=== PATIENT | male | born 1975 | race Two or more races ===

== ENCOUNTER 2024-02-14 07:18 | Emergency (ER) | payer MEDICARE ==
[~2024-02-14] VITALS: Ht 182.9 cm; Wt 100.0 kg
[2024-02-14 08:09] VITALS: TEMP 97.5
--- NOTE | 2024-02-14 09:19 | ED.PDOC ---
Psychiatric HPI Comments A 48 year old male brought in by EMS presents to the ED with a chief complaint of hallucinations onset a few days. Patient states he ran out of his psych medications and has been experiencing auditory, visual hallucinations as well as anxiety, not being able to sleep. He denies suicidal or homicidal ideation, chest pain, shortness of breath, abdominal pain, nausea, vomiting, diarrhea. No other symptoms or modifying factors present at this time. Chief Complaint: Hallucinations Time Seen by MD: 09:11 Reviewed Notes: Medications, Allergies Information Source: Patient Mode of Arrival: EMS Timing: Days Duration: Since onset Prehospital treatment: None Presents with: Anxiety Quality: Hallucinations Associated signs and symptoms: Anxiety, Hallucinations Past Medical History PAST MEDICAL HISTORY: Anxiety Surgical History: Unknown Family History Family History: Unknown Social History Smoker: Non-Smoker Alcohol: Denies ETOH Use Drugs: Denies Drug Use Lives In: Home Constitutional: denies: chills, diaphoresis, fatigue, fever, malaise, sweats, weakness, others EENTM: denies: blurred vision, double vision, ear bleeding, ear discharge, ear drainage, ear pain, ear ringing, eye pain, eye redness, hearing loss, mouth pain, mouth swelling, nasal discharge, nose bleeding, nose congestion, nose pain, photophobia, tearing, throat pain, throat swelling, voice changes, others Respiratory: denies: cough, hemoptysis, orthopnea, SOB at rest, shortness of breath, SOB with excertion, stridor, wheezing, others Cardiovascular: denies: chest pain, dizzy spells, diaphoresis, Dyspnea on exertion, edema, irregular heart beat, left arm pain, lightheadedness, palpitations, PND, syncope, others Gastrointestinal: denies: abdomen distended, abdominal pain, blood streaked bowels, constipated, diarrhea, dysphagia, difficulty swallowing, hematemesis, melena, nausea, poor appetite, poor fluid intake, rectal bleeding, rectal pain, vomiting, others Genitourinary: denies: burning, dysuria, flank pain, frequency, hematuria, incontinence, penile discharge, penile sore, pain, testicle pain, testicle swelling, urgency, others Neurological: denies: dizziness, fainting, headache, left sided numbness, left sided weakness, numbness, paresthesia, pre-existing deficit, right sided numbness, right sided weakness, seizure, speech problems, tingling, tremors, weakness, others Musculoskeletal: denies: back pain, gout, joint pain, joint swelling, muscle pain, muscle stiffness, neck pain, others Integumetry: denies: bruises, change in color, change in hair/nails, dryness, laceration, lesions, lumps, rash, wounds, others Allergic/Immunocompromised: denies: Difficulty Healing, Frequent Infections, Hives, Itching, others Hematologic/Lymphatic: denies: anemia, blood clots, easy bleeding, easy bruising, swollen glands, others Endocrine: denies: excessive hunger, excessive sweating, excessive thirst, excessive urination, flushing, intolerance to cold, intolerance to heat, unexplained weight gain, unexplained weight loss, others Psychiatric: reports: anxiety, sleepless, others (visual and auditory hallucinations); denies: bipolar disorder, depression, hopeless, panic disorder, schizophrenia, suicidal All Other Systems: Reviewed and Negative Physical Exam General Appearance: No Apparent Distress, Normal HEENT: Normal ENT Inspection, Pharynx Normal, TMs Normal Neck: Full Range of Motion, Non-Tender, Normal, Normal Inspection Respiratory: Chest Non-Tender, Lungs Clear, No Accessory Muscle Use, No Respiratory Distress, Normal Breath Sounds Cardiovascular: No Edema, No JVD, No Murmur, No Gallop, Normal Peripheral Pulses, Regular Rate/Rhythm Breast Exam: Deferred Gastrointestinal: No Organomegaly, Non Tender, No Pulsatile Mass, Normal Bowel Sounds, Soft Genitalia: Deferred Pelvic: Deferred Rectal: Deferred Extremities: No calf tenderness, Normal capillary refill, Normal inspection, Normal range of motion, Non-tender, No pedal edema Musculoskeletal : Apperance: Normal Neurologic: Alert, casting machine set up operator II-XII nml as Tested, No Motor Deficits, Normal Affect, Normal Mood, No Sensory Deficits Cerebellar Function: Normal Reflexes: Normal Skin: Dry, Normal Color, Warm Lymphatic: No Adenopathy Was a procedure done? Was a procedure done?: No Psych Differential Dx Psych. Differential Dx: Anxiety, Depression, Sleepless, Suicidal Suicidal Differential Dx: Panic Disorder, Personality Disorder Intoxication Differential Dx: Medical Noncompliance, Personality Disorder X-Ray, Labs, Meds, VS Vital Signs Date Time Temp Pulse Resp B/P (MAP) Pulse Ox O2 Delivery O2 Flow Rate FiO2 02/14/24 10:59 64 13 96 Room Air* 0 21 02/14/24 10:58 64 13 147/97 (114) 96 02/14/24 08:09 97.5 62 14 165/97 (119) 99 97.5 02/14/24 07:49 98.3 84 17 172/108 (129) 100 Lab Test 02/14/24 09:30 02/14/24 09:00 Range/Units White Blood Count 8.4 4.4-10.8 10^3/uL Red Blood Count 5.14 4.5-5.90 10^6/uL Hemoglobin 15.3 13.5-17.5 g/dL Hematocrit 45.3 41.0-53.0 % Mean Corpuscular Volume 88.2 80.0-100.0 fL Mean Corpuscular Hemoglobin 29.7 28.0-32.0 pg Mean Corpuscular Hemoglobin Concent 33.7 32.0-36.0 g/dL Red Cell Distribution Width 14.3 11.8-14.3 % Platelet Count 347 140-450 10^3/uL Mean Platelet Volume 6.6 L 6.9-10.8 fL Neutrophils (%) (Auto) 81.7 H 37.0-80.0 % Lymphocytes (%) (Auto) 11.0 10.0-50.0 % Monocytes (%) (Auto) 6.0 0.0-12.0 % Eosinophils (%) (Auto) 0.8 0.0-7.0 % Basophils (%) (Auto) 0.5 0.0-2.0 % Neutrophils # (Auto) 6.9 1.6-8.6 10 ^3/uL Lymphocytes # (Auto) 0.9 0.4-5.4 10 ^3/uL Monocytes # (Auto) 0.5 0-1.3 10 ^3/uL Eosinophils # (Auto) 0.1 0-0.8 10 ^3/uL Basophils # (Auto) 0 0-0.2 10 ^3/uL Nucleated Red Blood Cells 0.0 % Sodium Level 137 136-145 mmol/L Potassium Level 4.2 3.5-5.1 mmol/L Chloride Level 104 98-107 mmol/L Carbon Dioxide Level 23 20-31 mmol/L Anion Gap 10 5-15 Blood Urea Nitrogen 7 L 9-23 mg/dL Creatinine 1.22 0.700-1.30 mg/dL Glomerular Filtration Rate Calc 72 >90 mL/min BUN/Creatinine Ratio 5.7 L 10.0-20.0 Serum Glucose 124 H 74-106 mg/dL Calcium Level 10.5 H 8.7-10.4 mg/dL Salicylates Level < 3.0 -30 mg/dL Acetaminophen Level < 2.0 L 10.0-20.0 UG/ML Plasma/Serum Blood Alcohol < 3.0 <10 mg/dL Urine Color Light-yellow Yellow Urine Clarity Clear Clear Urine pH 7.0 5.0-9.0 Urine Specific [place] 1.015 1.001-1.035 Urine Protein Negative Negative Urine Ketones 1+ H Negative Urine Blood Negative Negative /uL Urine Nitrite Negative Negative Urine Bilirubin Negative Negative Urine Urobilinogen Normal Negative mg/dL Urine Leukocyte Esterase Negative Negative /uL Urine RBC 2 0 - 3 /hpf Urine WBC <1 0 - 3 /hpf Urine Squamous Epithelial Cells None seen <5 /hpf Urine Bacteria None seen None Seen /hpf Urine Glucose Normal Normal mg/dL Urine Opiates Screen Neg NEGATIVE Urine Fentanyl Screen Neg NEGATIVE Urine Barbiturates Screen Neg NEGATIVE Urine Phencyclidine Screen Neg NEGATIVE Urine Amphetamines Screen Neg NEGATIVE Urine Benzodiazepines Screen Neg NEGATIVE Urine Cocaine Screen Neg NEGATIVE Urine Cannabinoids Screen Neg NEGATIVE Current Medications Medications (Trade) Dose Ordered Sig/Carlton Route Start Time Stop Time Status Last Admin Lorazepam (Ativan Inj) 1 mg ONCE ONCE IV 02/14/24 09:15 02/14/24 09:16 DC 02/14/24 09:53 Time of 1ST Reevaluation: 09:41 Reevaluation 1ST: Unchanged Patient Education/Counseling: Diagnosis, Treatment, Prognosis Family Education/Counseling: No Family Present Additional Information HI DATA VOL/COMPLEXITY:>2 External Notes- Ordered Test- LAB, PHA Reviewed Results: BMP, CBC, Drug Screen, Blood Alcohol, Acetaminophen, Salicylate, UA Independent Hx- no Interpreted Results- N/A Discuss Tx/Results- medical personnel, network consultant, pt Departure 1 Departure Time of Disposition: 14:29 (Patient with altered mental status hearing voices and having intense anxiety. Patient was medically cleared for psychiatry. Patient then eloped.) Impression: Primary Impression: Anxiety reaction Additional Impression: Auditory hallucinations Disposition: 07 LEFT AWOL/ELOPED Condition: Fair Critical Care Note Critical Care Time?: No Stability Stability form required: No I personally scribed for LEIGH BIRMINGHAM MD ([email or web address]) on 02/14/24 at 09:19. Electronically submitted by Dolly Stout ([email or web address]). I personally scribed for LEIGH BIRMINGHAM MD ([email or web address]) on 02/14/24 at 10:48. Electronically submitted by Dolly Stout [email or web address]). LEIGH BIRMINGHAM MD Feb 14, 2024 09:19
[2024-02-14 09:41] LABS: Basophils # (auto) 0 10 ^3/uL (0-0.2); Basophils % (auto) 0.5 % (0.0-2.0); Eosinophils # (auto) 0.1 10 ^3/uL (0-0.8); Eosinophils % (auto) 0.8 % (0.0-7.0); Hematocrit 45.3 % (41.0-53.0); Hemoglobin 15.3 g/dL (13.5-17.5); Lymphocytes # (auto) 0.9 10 ^3/uL (0.4-5.4); Mean Corpuscular Hemoglobin 29.7 pg (28.0-32.0); Mean Corpuscular Hgb Conc. 33.7 g/dL (32.0-36.0); Mean Corpuscular Volume 88.2 fL (80.0-100.0); Monocytes # (auto) 0.5 10 ^3/uL (0-1.3); Neutrophils # (auto) 6.9 10 ^3/uL (1.6-8.6); Neutrophils % (auto) 81.7 % (37.0-80.0); Platelet Count (auto) 347 10^3/uL (140-450); Red Blood Cells 5.14 10^6/uL (4.5-5.90); Red Cell Distribution Width 14.3 % (11.8-14.3); White Blood Cell 8.4 10^3/uL (4.4-10.8)
[2024-02-14 09:48] LABS: Chloride 104 mmol/L (98-107); Potassium 4.2 mmol/L (3.5-5.1); Sodium 137 mmol/L (136-145)
[2024-02-14 09:49] LABS: Anion Gap 10 (5-15); Carbon Dioxide 23 mmol/L (20-31)
[2024-02-14 09:50] LABS: Urine Bacteria None Seen /hpf (None Seen)
[2024-02-14 09:51] LABS: Calcium 10.5 mg/dL (8.7-10.4)
[2024-02-14] MEDS: LORazepam 2MG/ML-1ML VIAL IV ONE (09:53)
[2024-02-14 09:54] LABS: BUN/Creatinine Ratio 5.7 (10.0-20.0)
[2024-02-14 09:58] LABS: Urine Blood Negative /uL (Negative); Urine Clarity Clear (Clear); Urine Color Light-Yellow (Yellow); Urine Protein, UAD Negative (Negative); Urine Specific Gravity 1.015 (1.001-1.035); Urine Urobilinogen Normal (Negative); Urine WBC <1 /hpf (0 - 3)
[2024-02-14 10:02] LABS: Acetaminophen < 2.0 UG/ML (10.0-20.0); Blood Alcohol < 3.0 mg/dL (<10); Blood Urea Nitrogen 7 mg/dL (9-23); Glucose 124 mg/dL (74-106)
[2024-02-14 10:03] LABS: Salicylate < 3.0 mg/dL (-30)
[2024-02-14 10:09] LABS: Benzodiazephine Screen, Urine Neg (NEGATIVE)
[2024-02-14 10:12] LABS: Amphetamine Screen, Urine Neg (NEGATIVE); Barbiturate Scree,Urine Neg (NEGATIVE); Cannabinoid Screen, Urine Neg (NEGATIVE); Cocaine Screen, Urine Neg (NEGATIVE); Opiate Scree,Urine Neg (NEGATIVE); Phencyclidine Screen, Urine Neg (NEGATIVE)
[2024-02-14 10:58] VITALS: BP 147/97
[2024-02-14 10:59] VITALS: PULSE 64; RESP 13; O2SAT 96
== END 2024-02-14 14:30 | disposition left against medical advice (07) ==
LOC: EDBD 07:18 → ER 07:18
DX: F41.1 Generalized anxiety disorder (principal); R44.0 Auditory hallucinations; R44.1 Visual hallucinations; R41.82 Altered mental status, unspecified
CPT/HCPCS: 36415; 80048; 80307; 80320; 80329; 81001; 85025; 96374; 99283; J2060

== ENCOUNTER 2024-02-15 16:33 | Emergency (ER) | payer MEDICARE ==
[~2024-02-15] VITALS: Ht 182.9 cm; Wt 99.9 kg
[2024-02-15 17:00] VITALS: PULSE 62; RESP 16; O2SAT 98
[2024-02-15] MEDS: MULTIPLE VITAMIN TAB PO ONE (17:28)
[2024-02-15] MEDS: THIAMINE HCL 100 MG TAB PO ONE (17:28)
[2024-02-15 17:30] LABS: Basophils # (auto) 0.1 10 ^3/uL (0-0.2); Basophils % (auto) 0.6 % (0.0-2.0); Eosinophils # (auto) 0.1 10 ^3/uL (0-0.8); Eosinophils % (auto) 0.6 % (0.0-7.0); Hematocrit 42.3 % (41.0-53.0); Hemoglobin 14.8 g/dL (13.5-17.5); Lymphocytes # (auto) 1.8 10 ^3/uL (0.4-5.4); Lymphocytes % (auto) 18.8 % (10.0-50.0); Mean Corpuscular Hemoglobin 30.1 pg (28.0-32.0); Mean Corpuscular Hgb Conc. 34.9 g/dL (32.0-36.0); Mean Corpuscular Volume 86.2 fL (80.0-100.0); Monocytes # (auto) 0.7 10 ^3/uL (0-1.3); Monocytes % (auto) 7.8 % (0.0-12.0); Neutrophils # (auto) 6.8 10 ^3/uL (1.6-8.6); Neutrophils % (auto) 72.2 % (37.0-80.0); Platelet Count (auto) 344 10^3/uL (140-450); Red Cell Distribution Width 13.7 % (11.8-14.3); White Blood Cell 9.5 10^3/uL (4.4-10.8)
[2024-02-15] MEDS: LORazepam 2MG/ML-1ML VIAL IM ONE (17:31)
[2024-02-15] MEDS: HALOPERIDOL LACTATE 5 MG/ML INJ VIAL IM ONE (17:40)
[2024-02-15] MEDS: diphenhdrAMINE HCL 50 MG/1 ML VL IV ONE (17:40)
[2024-02-15 17:54] LABS: Alanine Aminotransferase 24 U/L (7-40); Albumin 4.7 g/dL (3.2-4.8); Alkaline Phosphatase 53 U/L (46-116); Anion Gap 11 (5-15); Aspartate Aminotransferase 21 U/L (13-40); BUN/Creatinine Ratio 7.4 (10.0-20.0); Blood Urea Nitrogen 9 mg/dL (9-23); Calcium 10.4 mg/dL (8.7-10.4); Carbon Dioxide 21 mmol/L (20-31); Chloride 100 mmol/L (98-107); Potassium 3.9 mmol/L (3.5-5.1); Total Protein 7.2 g/dL (5.7-8.2)
[2024-02-15 17:56] LABS: Acetaminophen < 2.0 UG/ML (10.0-20.0)
[2024-02-15 17:57] LABS: Bilirubin, Total 1.2 mg/dL (0.2-1.0); Glucose 113 mg/dL (74-106); Sodium 132 mmol/L (136-145)
--- NOTE | 2024-02-15 18:00 | ED.PDOC ---
Psychiatric HPI Comments 48-year-old male alcoholic who is on naltrexone and Ativan with history of anxiety, presented yesterday with an anxiety episode treated with 1 round of Ativan 1 mg and allegedly he went home with a normal mental status, he represents with his sister and his father who indicate that he has been altered since this morning, they also endorse that they know that he has been a heavy drinker in the past but do not think that he has drank in the last 7 months, as far as there were no other recreational drugs, he has a psychiatric history otherwise unspecified they are not sure about diagnoses, as far as they are aware no history of SI, HI, AH, VH. They do know that he has been complaining of insomnia and has been taking melatonin with little relief for his insomnia. Patient is very much compromised mentally and not able to provided legitimate history he can identify his parents and his sister, he can not tell me the year, he can not tell me any of his past surgeries, he can not tell me that he used to drink and has not drank in 7 months. Otherwise the history that is able to be obtained from him isn't noncontributory. Family is unsure of medications but they will acquire them from another family member at the house. Chief Complaint: Anxiety Time Seen by MD: 16:38 Primary Care Provider: EFRAIN Mode of Arrival: Ambulatory Past Medical History PAST MEDICAL HISTORY: Anxiety Surgical History: Unknown Family History Family History: Unknown Social History Smoker: Non-Smoker Alcohol: Denies ETOH Use Drugs: Denies Drug Use Lives In: Home Constitutional: denies: chills, diaphoresis, fatigue, fever, malaise, weakness, others EENTM: denies: nose congestion, photophobia, voice changes Respiratory: denies: cough Cardiovascular: denies: chest pain Gastrointestinal: denies: abdominal pain Genitourinary: denies: burning, dysuria, pain Neurological: denies: dizziness, fainting, headache, numbness, paresthesia, seizure, speech problems, tremors Unable to Obtain due to: Altered Mental Status All Other Systems: Reviewed and Negative Physical Exam Exam Comments Alert, oriented to place, oriented to family members and himself, oriented to year. But is not able to provide information on things that the patient would normally know like what his address is, what kind of surgeries his had etcetera General Appearance: No Apparent Distress, Normal HEENT: Normal ENT Inspection, Pharynx Normal, TMs Normal Neck: Full Range of Motion, Non-Tender, Normal, Normal Inspection Respiratory: Chest Non-Tender, Lungs Clear, No Accessory Muscle Use, No Respiratory Distress, Normal Breath Sounds Cardiovascular: No Edema, No JVD, No Murmur, No Gallop, Normal Peripheral Pulses, Regular Rate/Rhythm Breast Exam: Deferred Gastrointestinal: No Organomegaly, Non Tender, No Pulsatile Mass, Normal Bowel Sounds, Soft Genitalia: Deferred Pelvic: Deferred Rectal: Deferred Extremities: No calf tenderness, Normal capillary refill, Normal inspection, Normal range of motion, Non-tender, No pedal edema Musculoskeletal : Apperance: Normal Neurologic: Alert, art objects repairer II-XII nml as Tested, No Motor Deficits, Normal Affect, Normal Mood, No Sensory Deficits Cerebellar Function: Normal Reflexes: Normal Skin: Dry, Normal Color, Warm Lymphatic: No Adenopathy Was a procedure done? Was a procedure done?: No Psych Differential Dx Other Differentail Dx Acute psychosis, insomnia induced psychosis, medication withdrawal induced altered mental status unlikely based on the meds that he is on but possible, acute psychotic break, Wernicke's encephalopathy are all possibilities X-Ray, Labs, Meds, VS Vital Signs Date Time Temp Pulse Resp B/P (MAP) Pulse Ox O2 Delivery O2 Flow Rate FiO2 02/15/24 20:00 57 02/15/24 18:00 52 16 130/89 (103) 98 02/15/24 17:00 62 16 98 Room Air* 0 21 02/15/24 17:00 98.8 62 18 165/98 (120) 98 98.8 02/15/24 16:52 98.8 71 18 187/159 (168) 100 Lab Test 02/15/24 17:23 Range/Units White Blood Count 9.5 4.4-10.8 10^3/uL Red Blood Count 4.90 4.5-5.90 10^6/uL Hemoglobin 14.8 13.5-17.5 g/dL Hematocrit 42.3 41.0-53.0 % Mean Corpuscular Volume 86.2 80.0-100.0 fL Mean Corpuscular Hemoglobin 30.1 28.0-32.0 pg Mean Corpuscular Hemoglobin Concent 34.9 32.0-36.0 g/dL Red Cell Distribution Width 13.7 11.8-14.3 % Platelet Count 344 140-450 10^3/uL Mean Platelet Volume 6.5 L 6.9-10.8 fL Neutrophils (%) (Auto) 72.2 37.0-80.0 % Lymphocytes (%) (Auto) 18.8 10.0-50.0 % Monocytes (%) (Auto) 7.8 0.0-12.0 % Eosinophils (%) (Auto) 0.6 0.0-7.0 % Basophils (%) (Auto) 0.6 0.0-2.0 % Neutrophils # (Auto) 6.8 1.6-8.6 10 ^3/uL Lymphocytes # (Auto) 1.8 0.4-5.4 10 ^3/uL Monocytes # (Auto) 0.7 0-1.3 10 ^3/uL Eosinophils # (Auto) 0.1 0-0.8 10 ^3/uL Basophils # (Auto) 0.1 0-0.2 10 ^3/uL Nucleated Red Blood Cells 0.0 % Sodium Level 132 #L 136-145 mmol/L Potassium Level 3.9 3.5-5.1 mmol/L Chloride Level 100 98-107 mmol/L Carbon Dioxide Level 21 20-31 mmol/L Anion Gap 11 5-15 Blood Urea Nitrogen 9 9-23 mg/dL Creatinine 1.22 0.700-1.30 mg/dL Glomerular Filtration Rate Calc 72 >90 mL/min BUN/Creatinine Ratio 7.4 L 10.0-20.0 Serum Glucose 113 H 74-106 mg/dL Calcium Level 10.4 8.7-10.4 mg/dL Total Bilirubin 1.2 H 0.2-1.0 mg/dL Aspartate Amino Transferase (AST) 21 13-40 U/L Alanine Aminotransferase (ALT) 24 7-40 U/L Alkaline Phosphatase 53 46-116 U/L Total Protein 7.2 5.7-8.2 g/dL Albumin 4.7 3.2-4.8 g/dL Salicylates Level < 3.0 -30 mg/dL Acetaminophen Level < 2.0 L 10.0-20.0 UG/ML Current Medications Medications (Trade) Dose Ordered Sig/Carlton Route Start Time Stop Time Status Last Admin Thiamine HCl 100 mg ONCE ONCE PO 02/15/24 17:15 02/15/24 17:16 DC 02/15/24 17:28 Multivitamins (Mvi Tab) 1 tab ONCE ONCE PO 02/15/24 17:15 02/15/24 17:16 DC 02/15/24 17:28 Lorazepam (Ativan Inj) 2 mg ONCE ONCE IM 02/15/24 17:15 02/15/24 17:16 DC 02/15/24 17:31 Haloperidol Lactate (Haldol) 5 mg ONCE ONCE IM 02/15/24 17:15 02/15/24 17:16 DC 02/15/24 17:40 Diphenhydramine HCl (Benadryl Injection) 50 mg ONCE ONCE IV 02/15/24 17:15 02/15/24 17:16 DC 02/15/24 17:40 X-Ray, Labs, Meds, VS Comment : 1975 LOC: ER ROOM / BED: / AGE / SEX: 48 / M ADM STATUS: REG ER SERVICE 170 ORDERING PHYSICIAN: HEDY CASTREJON MD PROCEDURE(s): HWOCT - HEAD WITHOUT CONTRAST REASON: [facility] ORDER NUMBER(s): [id number], ACCESSION NUMBER(s): [id number] EXAM: CT HEAD WITHOUT CONTRAST INDICATION: AMS TECHNIQUE: CT of the head without intravenous contrast. Radiation Dose Information: CT Dose: CTDI volume is 57.14 mGy. Dose-length product is 1993.76 mGy*cm The dose indicators for CT are the volume Computed Tomography (CT) Dose Index (CTDIvol) and the Dose Length Product (DLP), and are measured in units of mGy and mGy-cm, respectively. These indicators are not patient dose, but values generated from the CT scanner acquisition factors. The report includes radiation exposure data for exposures received during this examination. COMPARISON: None FINDINGS: There is no evidence of acute intracranial hemorrhage, extra-axial collection, mass effect, midline shift, herniation or hydrocephalus. The ventricles, sulci and cisterns are age appropriate. The haji-white differentiation is intact. Patchy periventricular and subcortical white matter hypoattenuation is nonspecific but may be related to small vessel ischemic disease. The visualized paranasal sinuses and mastoid air cells are clear. The surrounding soft tissues and osseous structures are unremarkable. IMPRESSION: 1. No acute intracranial hemorrhage. 2. No CT findings of territorial ischemia ATED BY: ENMANUEL DONALDSON Jr., DO DICTATED DATE/TIME: 02/15/242022 SIGNED BY: ENMANUEL DONALDSON Jr., SIGNED DATE/TIME: 02/15/242022 Patient's sister Leandra phone number [phone] does not feel comfortable with the patient coming home with his current mental status which is reasonable, requesting psychiatric evaluation. Time of 1ST Reevaluation: 17:57 Reevaluation 1ST: Unchanged (Family has notified us that his medications as far as they are aware is melatonin 3 mg, naltrexone 50 mg, lorazepam 1 mg of which he is out and finasteride 1 mg. Patient's mental status is that of 1 who is gravely disabled.) Time of 2ND Reevaluation: 19:29 (Resting comfortably) Reevaluation 2ND: Unchanged (Resting comfortably) Time of 3RD Reevaluation: 21:16 Reevaluation 3RD: Unchanged (When patient is aroused, able to answer some of the questions he was not able to answer before, immediately falls back asleep.) Patient Education/Counseling: Diagnosis, Treatment Family Education/Counseling: Diagnosis (Spoke with daughter Leandra [phone] who was at bedside who would like the patient to be kept overnight and evaluated for psych. She does not feel comfortable bringing him home to stay with her children in his current state.), Treatment Departure 1 Departure Time of Disposition: 19:29 Impression: Primary Impression: Alcohol abuse Additional Impressions: Anxiety reaction Insomnia Altered mental status Disposition: 30 STILL A PATIENT Admit to: Other Condition: Guarded Critical Care Note Critical Care Time?: Yes (30 min-critical care time only) Critical care comment: Multiple reassessments, discussions with father, discussions with sister, review of previous notes. Stability Stability form required: No HEDY CASTREJON MD Feb 15, 2024 18:00
[2024-02-15 18:15] LABS: Salicylate < 3.0 mg/dL (-30)
[2024-02-15 20:00] VITALS: PULSE 64; RESP 13; O2SAT 94
--- NOTE | 2024-02-15 20:25 | DVH ---
EXAM: CT HEAD WITHOUT CONTRAST INDICATION: AMS TECHNIQUE: CT of the head without intravenous contrast. Radiation Dose Information: CT Dose: CTDI volume is 57.14 mGy. Dose-length product is 1993.76 mGy*cm The dose indicators for CT are the volume Computed Tomography (CT) Dose Index (CTDIvol) and the Dose Length Product (DLP), and are measured in units of mGy and mGy-cm, respectively. These indicators are not patient dose, but values generated from the CT scanner acquisition factors. The report includes radiation exposure data for exposures received during this examination. COMPARISON: None FINDINGS: There is no evidence of acute intracranial hemorrhage, extra-axial collection, mass effect, midline s hift, herniation or hydrocephalus. The ventricles, sulci and cisterns are age appropriate. The haji-white differentiation is intact. Patchy periventricular and subcortical white matter hypoattenuation is nonspecific but may be related to small vessel ischemic disease. The visualized paranasal sinuses and mastoid air cells are clear. The surrounding soft tissues and osseous structures are unremarkable. IMPRESSION: 1. No acute intracranial hemorrhage. 2. No CT findings of territorial ischemia
[2024-02-15] MEDS: LORazepam 2MG/ML-1ML VIAL IV ONE (23:25)
[2024-02-16] MEDS: LORazepam 2MG/ML-1ML VIAL IV ONE (01:50)
--- NOTE | 2024-02-16 04:18 | DVHINCON2 ---
Date of Service if different f: Feb 16, 2024 Time of Service: 03:45 Consult Consult Note PSYCHIATRY ED NEW CONSULT HPI: 48 yo M pt with PPH of ETOH use disorder and anxiety presents to ED BIB family members for safety, psychiatric stabilization and possible med initiation/optimization in setting of anxiety, AMS, and AVH. Psychiatry consulted for safety evaluation and recommendations in context of current presentation Per pt, reports ongoing issues with insomnia and since visiting his family in [place] over last week, c/o worsening lack of sleep resulting in confusion, fatigue, low energy, forgetfulness, PMR, and vague NC/NT AVH. Adds he has run out of his rx'd psychotropics since he is out of state which maybe causing these symptoms. Pt also reports some ongoing stress/strained relationship with family members which may have triggered a panic attack earlier in the day Denies depressed mood, hopelessness, helplessness, isolation, negative thoughts, loss of interest, or anhedonia. Adamantly denies SI/HI. Pt currently does not have psychiatrist/therapist out in community although has sought outpt MH services in past. Currently rx'd Mirtazapine, Melatonin, Lorazepam, Naltrexone but ran out of meds several days ago. Denies self medicating mood symptoms with ETOH, THC or IDU although does have long hx of ETOH dependency, previously in various drug tx programs with multiple relapses. Never , no children, unemployed, lives with sibling/family in [place], came to [place] to visit family for TG, no legal issues, some support system noted (immediate family). Unknown FH. No acute medical issues, hx of seizures/TBI, or recent head injuries, NKDA Does not have hx of suicide attempts, SIB/PSG, or prior psych hospitalizations/5150. Denies history of violence, unprovoked aggression, or assaultive behaviors. Denies recent hx of impulsivity, attention seeking behaviors, anger outbursts, emotional dysregulation, mood reactivity or engaging in risky behaviors. Does not have access to firearms. Currently denies SI/HI. Identifies self/family as PPF. No safety concerns noted during encounter. MSE: General Appearance/Behavior: Alert and partially awake/bit lethargic; appears stated age, well developed, fair grooming and hygiene; calm and cooperative, fair eye contact, no PMA/PMR Speech: coherent, some latency Thought Process: linear, logical, limited/concrete, bit slow Thought Content: Abnormal Thoughts and Perceptions: None Homicidality / Violent Thoughts: None Suicidality: adamantly denies SI Hallucinations: mild NC/NT AVH Delusions: denies paranoia, persecutory, or grandiose delusions Obsessions /compulsions : None Judgment and Insight: marginal to questionable Mood & Affect: "just really tired" with mood-congruent, somewhat constricted/restricted, appropriate Orientation: oriented to person, place, time Attention/Concentration: appears intact Assessment: 48 yo M pt with PPH of ETOH use disorder and anxiety presents to ED BIB family members for safety, psychiatric stabilization and possible med initiation/optimization in setting of anxiety, AMS, and AVH. Currently denies SI/HI but continues to have NC/NT AVH and some confusion possibly 2/2 running out of psychotropics over past week resulting in poor sleep, worsening anxiety and emotional distress Presently, pt does not show any signs of immediate danger to self or others that would warrant a higher level of care. Thus, pt does not meet criteria for 5150 or involuntary inpatient psych admission as is not DTS, DTO or GD although voluntary inpt psychiatric hospitalization was offered but pt respectfully declined. However pt expressed further ED observation/reassessment in AM while requesting one time dose of quetiapine 200 mg po now to help with sleep/AVH. No acute safety concerns noted. Hence Recommend overnight ED observation and psych reassessment in AM to assess for ongoing safety/psychiatric stabilization and to determine if higher level of care (i.e inpt psych hospitalization) or 5150 hold is warranted. Recommend one time dose of quetiapine 200 mg po now per pts request If pt continues to show improved J/I, appears hopeful and future-oriented, participates in safety plan, and continues to deny any SI/HI, can consider discharge back to current residence with MH resources If pt shows no/minimal improvement in symptoms upon reassessment and continues to have impaired I/J and psychosis/AMS, recommend inpt psych admission for higher level of care Primary Diagnosis: Anxiety disorder unspecified. R/o Psychotic disorder unspecified. ETOH use disorder, IN DOCKING PILOT Pt verbalized understanding and is receptive to above tx plan This case was discussed with ED nurse/provider and all parties in agreement with above tx plan Brendan Grayson MD Plan discussed with: Patient BRENDAN GRAYSON MD Feb 16, 2024 04:18
[2024-02-16] MEDS: QUEtiapine FUMARATE 100 MG TAB PO ONE (04:30)
[2024-02-16 04:43] LABS: Benzodiazephine Screen, Urine Neg (NEGATIVE); Cannabinoid Screen, Urine Neg (NEGATIVE); Opiate Scree,Urine Neg (NEGATIVE)
[2024-02-16 04:44] LABS: Amphetamine Screen, Urine Neg (NEGATIVE); Barbiturate Scree,Urine Neg (NEGATIVE); Cocaine Screen, Urine Neg (NEGATIVE); Phencyclidine Screen, Urine Neg (NEGATIVE)
[2024-02-16 07:36] VITALS: PULSE 85; RESP 13; O2SAT 97
--- NOTE | 2024-02-16 11:06 | DVHINCON2 ---
Date of Service if different f: Feb 16, 2024 Consultation (JOHNNA) Progress: Better Labs Laboratory Tests Test 02/15/24 17:23 02/16/24 04:05 White Blood Count 9.5 10^3/uL (4.4-10.8) Red Blood Count 4.90 10^6/uL (4.5-5.90) Hemoglobin 14.8 g/dL (13.5-17.5) Hematocrit 42.3 % (41.0-53.0) Mean Corpuscular Volume 86.2 fL (80.0-100.0) Mean Corpuscular Hemoglobin 30.1 pg (28.0-32.0) Mean Corpuscular Hemoglobin Concent 34.9 g/dL (32.0-36.0) Red Cell Distribution Width 13.7 % (11.8-14.3) Platelet Count 344 10^3/uL (140-450) Mean Platelet Volume 6.5 fL (6.9-10.8) Neutrophils (%) (Auto) 72.2 % (37.0-80.0) Lymphocytes (%) (Auto) 18.8 % (10.0-50.0) Monocytes (%) (Auto) 7.8 % (0.0-12.0) Eosinophils (%) (Auto) 0.6 % (0.0-7.0) Basophils (%) (Auto) 0.6 % (0.0-2.0) Neutrophils # (Auto) 6.8 10 ^3/uL (1.6-8.6) Lymphocytes # (Auto) 1.8 10 ^3/uL (0.4-5.4) Monocytes # (Auto) 0.7 10 ^3/uL (0-1.3) Eosinophils # (Auto) 0.1 10 ^3/uL (0-0.8) Basophils # (Auto) 0.1 10 ^3/uL (0-0.2) Nucleated Red Blood Cells 0.0 % Sodium Level 132 mmol/L (136-145) Potassium Level 3.9 mmol/L (3.5-5.1) Chloride Level 100 mmol/L (98-107) Carbon Dioxide Level 21 mmol/L (20-31) Anion Gap 11 (5-15) Blood Urea Nitrogen 9 mg/dL (9-23) Creatinine 1.22 mg/dL (0.700-1.30) Glomerular Filtration Rate Calc 72 mL/min (>90) BUN/Creatinine Ratio 7.4 (10.0-20.0) Serum Glucose 113 mg/dL (74-106) Calcium Level 10.4 mg/dL (8.7-10.4) Total Bilirubin 1.2 mg/dL (0.2-1.0) Aspartate Amino Transf (AST/SGOT) 21 U/L (13-40) Alanine Aminotransferase (ALT/SGPT) 24 U/L (7-40) Alkaline Phosphatase 53 U/L (46-116) Total Protein 7.2 g/dL (5.7-8.2) Albumin 4.7 g/dL (3.2-4.8) Salicylates Level < 3.0 mg/dL (-30) Acetaminophen Level < 2.0 UG/ML (10.0-20.0) Urine Opiates Screen Neg (NEGATIVE) Urine Fentanyl Screen Neg (NEGATIVE) Urine Barbiturates Screen Neg (NEGATIVE) Urine Phencyclidine Screen Neg (NEGATIVE) Urine Amphetamines Screen Neg (NEGATIVE) Urine Benzodiazepines Screen Neg (NEGATIVE) Urine Cocaine Screen Neg (NEGATIVE) Urine Cannabinoids Screen Neg (NEGATIVE) Appetite: Good Side effects of medications: No Appearance: Stated age Psychomotor activity: WNL Behavioral: Cooperative Eye contact: Appropriate Speech: WNL Affect: Appropriate Mood: Anxious Thought processes: Linear/Goal-directed Thought content: WNL Suicidal ideations: Absent Homicidal ideations: Absent Orientation: Person, Place, Time, Situation Memory intact: Recent Intellect: Average Abstractability: WNL Concentration: Adequate Attention: Adequate Judgement: WNL Insight: Good Vitals Vital Signs Date Time Temp Pulse Resp B/P (MAP) Pulse Ox O2 Delivery O2 Flow Rate FiO2 02/16/24 07:36 98.6 85 13 137/84 (101) 97 98.6 02/16/24 07:36 Room Air* 0 21 Medication adjusted: Yes (Please give prescription for Ativan 1 mg BID x 16 pills and Please also give Toprol XL 25 mg pills x 30 to self titrate as d iscussed with pt.) Labs ordered: No Psychotherapy provided: Yes Diagnosis: F41.1. Social anxiety disorder. F10.21. History of Present Illness Reason for Consult : Re-Eval. Subjective : Dr. Grayson saw this pt earlier in the morning between 4 and 5 am today and despite noting that the pt did not appear to meet criiteria for continued 5150, that a follow-up re-eval to make certain would be a good idea. Therefore I was able to verify the historical information contained in Dr. Grayson's note which is not duplicated here for logical reasons. Of note, the pt spoke about hearing sounds in other rooms where he was staying. Upon exploration of this symptom it appears that the pt is no necessarily hallucinating, but rather experiencing increased frequency of illusions d/t heightened social anxiety and not having access to the ativan that he has been using consistently at 1 mg BID for the last 6 months when he stopped drinking. The pt takes naltrexone and has remained sober, but is afraid to relapse b/c he had 1 beer on thanksgiving b/c his anxiety was so high. The pt really hopes to be able to have access to the ativan again so he can get through this visit with his father that means staying in the area for another week. Pt was offered alternative such as Toprol XP 25 mg to be self titrated when he felt ready to try it. Pt given info about the inevitable risk of a DUI, when found psoitive for ativan, if getting tested for drugs during a traffic stop or being pulled over. Pt did not know this. Pt has tried remeron, seroquel, gabapentin, L theanine and melatonin for his anxiety in the past with little benefit. Per him, nothing has helped as much as ativan. Pt was given recommendation to also take Magnesium glycinate 200 mg qhs in perpetuity. Pt said he will do so. He has some at home. Objective: See MSE. Assessment: At no point did the pt allude to having thoughts of harming self or others. When asked directly about it, the pt denied any thoughts of harm towards self or others and did not have any psychotic thought process or other such symptoms. The hallucinations appear to be illusions and therefore non-psychotic. Plan: 1) The pt seems to be low risk for harm to self or others and can be discharged if medically cleared. 2) Please provide prescription for Ativan 1 mg BID x 16 to tide him over for the current visit with family and return home. 3) Please provide prescription for Toprol 25 mg x 30 so that the pt can self titrate on this medicine instead of ativan when he feels comfortable doing so. Case discussed with Dr. Morin who is in agreement with plan. Assessment/Diagnosis/Plan Reviewed: Consults, Care Plan, Labs, Medications MIKE WATTS MD Feb 16, 2024 11:06
[2024-02-16 11:23] VITALS: BP 147/86; PULSE 78; RESP 10; TEMP 97.1; O2SAT 95
[2024-02-16] MEDS ORDERED: METO25TA36 PO (11:30)
[2024-02-16] MEDS ORDERED: LORA-1123 PO (11:30)
--- NOTE | 2024-02-16 11:32 | ED.PDOC ---
Departure 1 Departure Time of Disposition: 11:26 (Patient was re-evaluated by psychiatry who cleared patient for discharge. 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 You were prescribed ativan and toprolol to titrate as needed to your symptoms. If your symptoms worsen or you have any other concerns then please return to the ER. e-Prescriptions Metoprolol Succinate (Toprol Xl) 25 Mg Tab 1 TAB PO DAILY for 30 Days, #30 TAB 5 Refills Prov: LEIGH BIRMINGHAM MD 02/16/24 Lorazepam (Lorazepam) 1 Mg Tab 1 TAB PO BID for 16 Days, #32 TAB Prov: LEIGH BIRMINGHAM MD 02/16/24 Discharged With: Self LEIGH BIRMINGHAM MD Feb 16, 2024 11:32
== END 2024-02-16 11:35 | disposition home or self-care (01) ==
LOC: ER 16:33
DX: F41.1 Generalized anxiety disorder (principal); G47.00 Insomnia, unspecified; F10.10 Alcohol abuse, uncomplicated; R41.82 Altered mental status, unspecified; F40.10 Social phobia, unspecified; Z79.899 Other long term (current) drug therapy
CPT/HCPCS: 36415; 70450; 80053; 80307; 80329; 85025; 96372; 96374; 96375; 96376; 99291; J1200; J1630; J2060